=== PATIENT | female | born 1990 | race Caucasian/White ===

== ENCOUNTER 2021-04-06 05:45 | Emergency (ER) | payer OTHER ==
[~2021-04-06] VITALS: Ht 165.1 cm; Wt 59.0 kg
[~2021-04-06 05:45] MED LIST: DULERA 200 MCG/13 GM; LEVAQUIN750 MG PO; MEDROL4 MG; MEDROL4 MG PO; PROVENTIL3 ML/2.5 M; SINGULAIR10 MG; TUSSI PRES-B L120 M1 PO; TUSSIONEX PENNKI5 ML; TUSSIONEX PENNKI5 ML PO; ZITHROMAX TRI-500 MG PO
[2021-04-06] MEDS ORDERED: PROAIR HFA8.5 GM (06:04)
[2021-04-06] MEDS ORDERED: DOXYCYCLINE HY100 M2 (06:05)
== END 2021-04-06 10:07 | disposition home or self-care (01) ==
LOC: ER 05:45
DX: J45.901 Unspecified asthma with (acute) exacerbation (principal); J06.9 Acute upper respiratory infection, unspecified; Z20.822 Contact with and (suspected) exposure to COVID-19

== ENCOUNTER 2021-09-24 15:34 | Emergency (ER) | payer OTHER ==
[~2021-09-24] VITALS: Ht 165.1 cm; Wt 59.0 kg
[~2021-09-24 15:34] MED LIST changes: +DOXYCYCLINE HY100 M2; +PROAIR HFA8.5 GM
[2021-09-24] MEDS ORDERED: BREZTRI AEROS10.7 GM (16:54)
[2021-09-24] MEDS ORDERED: CODEINE-GUAIFE120 ML PO (19:48)
== END 2021-09-24 19:53 | disposition home or self-care (01) ==
LOC: ER 15:34
DX: J98.01 Acute bronchospasm (principal); Z20.822 Contact with and (suspected) exposure to COVID-19; Z88.8 Allergy status to other drugs, medicaments and biological substances

== ENCOUNTER 2024-02-12 02:40 | Emergency (ER) | payer OTHER ==
[~2024-02-12] VITALS: Ht 165.1 cm; Wt 62.6 kg
[~2024-02-12 02:40] MED LIST changes: +BREZTRI AEROS10.7 GM; +CODEINE-GUAIFE120 ML PO
[2024-02-12] MEDS ORDERED: JUNEL FE 1 MG-1 EACH PO (03:10)
[2024-02-12 03:11] VITALS: BP 113/71; O2SAT 98
[2024-02-12] MEDS ORDERED: HYDROCODONE/CHLORPHEN P-STIREX 5 ML ML PO STA (04:21)
[2024-02-12] MEDS ORDERED: METHYLPREDNISOLONE SOD SUCC 125 MG VIAL IV STA (04:21)
[2024-02-12] MEDS ORDERED: LEVALBUTEROL HCL 0.63 MG/3 ML SOLUTION IH SCH (04:30)
== END 2024-02-12 05:55 ==
LOC: ER 02:41
DX: J45.901 Unspecified asthma with (acute) exacerbation (principal); R06.02 Shortness of breath; Z87.09 Personal history of other diseases of the respiratory system; Z88.8 Allergy status to other drugs, medicaments and biological substances

== ENCOUNTER 2024-02-26 14:23 | Inpatient (IN) | payer OTHER ==
[~2024-02-26] VITALS: Ht 165.1 cm; Wt 62.1 kg
[~2024-02-26 14:23] MED LIST changes: +JUNEL FE 1 MG-1 EACH PO
--- NOTE | 2024-02-26 14:59 | NUR ---
PTE ALERTA Y ORIENTADA X3 REFIERE TOS Y QUE ANOCHE TUVO UN EPISODIO DE ATSMA. SE MIDEN S/V Y SE UBICA.
[2024-02-26] MEDS ORDERED: BUDESONIDE 0.25 MG/2 ML AMPUL.NEB IH STA (16:49)
[2024-02-26] MEDS ORDERED: ALBUTEROL SULFATE 3 ML/2.5 MG AMPUL.NEB IH STA (16:50)
[2024-02-26] MEDS ORDERED: GUAIFENESIN 200 MG/10 ML BLIST.PACK PO STA (16:50)
--- NOTE | 2024-02-26 18:22 | NUR ---
SE EDUCA ACERCA DE TX ORDENADO Y REFIERE ENTENDER; SE COLECTA MUESTRA DE LABORATORIO MEDIANTE MEDIDAS ASEPTICAS. SE ADMINISTRA MEDICAMENTO NETO ORDEN MEDICA. SE NOTIFICAN TERAPIAS RESPIRATORIAS.
[2024-02-26 18:23] LABS: HEMATOCRIT 39.1 % (36.0-45.00); MEAN CELL VOLUME 87.3 fL (80.00-100.00); MEAN CORPUSCULAR HGB CONC 33.2 g/dl (32.0-36.0); PLATELET COUNT 309 K/uL (150-450); RED BLOOD COUNT 4.48 M/uL (4.00-6.00); RED CELL DISTRIBUTION WIDTH 13.5 % (11.5-14.5)
[2024-02-26] MEDS ORDERED: 0.9 % SODIUM CHLORIDE 500 ML IV STA (19:38)
[2024-02-26] MEDS ORDERED: METHYLPREDNISOLONE SOD SUCC 40 MG VIAL IV STA (19:39)
[2024-02-26] MEDS ORDERED: CEFTRIAXONE SODIUM 1,000 MG VIAL IV STA (19:39)
[2024-02-26] MEDS ORDERED: CODEINE PHOSPHATE/GUAIFENESIN 5 ML ML PO STA (19:40)
[2024-02-26] MEDS ORDERED: ALBUTEROL SULFATE 3 ML/2.5 MG AMPUL.NEB IH SCH (22:30)
--- NOTE | 2024-02-26 23:20 | NUR ---
11:22PM SE NOTIFICA TERAPIAS A
[2024-02-27] MEDS ORDERED: HYDROCODONE/CHLORPHEN P-STIREX 5 ML ML PO STA (01:16)
[2024-02-27] MEDS ORDERED: ALBUTEROL SULFATE 3 ML/2.5 MG AMPUL.NEB IH SCH (02:00)
[2024-02-27] MEDS ORDERED: MAGNESIUM SULFATE IN WATER 4 GM/100 ML PIGGYBACK IV STA (05:16)
[2024-02-27] MEDS ORDERED: METHYLPREDNISOLONE SOD SUCC 125 MG VIAL IV SCH ×2 (06:00→09:00)
[2024-02-27 06:21] LABS: HEMATOCRIT 37.8 % (36.0-45.00); HEMOGLOBIN 12.3 g/dL (12.0-15.00); MEAN CELL VOLUME 87.6 fL (80.00-100.00); MEAN CORPUSCULAR HEMOGLOBIN 28.4 pg (27.00-32.0); MEAN CORPUSCULAR HGB CONC 32.4 g/dl (32.0-36.0); PLATELET COUNT 298 K/uL (150-450); RED BLOOD COUNT 4.31 M/uL (4.00-6.00); RED CELL DISTRIBUTION WIDTH 13.9 % (11.5-14.5)
[2024-02-27 06:41] LABS: URINE APPEARANCE Clear; URINE BILIRRUBIN Negative (NEGATIVE); URINE BLOOD Negative; URINE COLOR Yellow; URINE GLUCOSE Negative (NEGATIVE); URINE KETONE Negative (NEGATIVE); URINE LEUKOCYTE Negative; URINE NITRATE Negative; URINE PROTEIN Negative (NEGATIVE); URINE UROBILINOGEN 0.2 E.U./dl
[2024-02-27 06:43] LABS: URINE BACTERIA 21.4 uL (0.0-1933); URINE EPITHELIAL CELLS 12.9 uL (0.0-38.8)
[2024-02-27 06:47] LABS: ABG PH 7.361 (7.35-7.45); ABG PO2 114.3 mmHg (80-100); ABG pCO2 33.6 mmHg (35-45); BASE EXCESS -5.8 mmol/l; BICARBONATE 18.6 mmol/l (23-25); SaO2 98.1 %; Tco2 19.6 mmol/l; allen test SATISFACTORY; o2 21 %; puncture site RADIAL LEFT
[2024-02-27 06:59] LABS: ALBUMIN 3.5 gm/dL (3.4-5.0); BILIRUBIN TOTAL 0.19 mg/dL (0.3-1.2); CREATININE SERUM 0.91 mg/dL (0.55-1.02); GFR 71.19; GLOBULINA 3.6 G/DL (2.4-3.5); POTASSIUM 3.63 mEq/L (3.5-5.1); TOTAL PROTEIN 7.1 gm/dL (6.4-8.2)
[2024-02-27 07:11] LABS: URINE CAST 0.45 uL (0.0-1.40); URINE RBC 1.3 uL (0.0-20.8)
--- NOTE | 2024-02-27 07:18 | NUR ---
SE RECIBE PTE ALERTA Y ORIENTADA X3 LA MISMA EN UMER BAJA POR SEGURIDAD. SE OBSERVA CANALIZACION EN BRAZO ROSALBA #20 POR DONDE BAJA IVFLUIDS .9 NSS @125ML/HR. SE REALIZAN VITALES Y SE RANJEET PTE EN ESPERA DE CONSULTA CON DR SUTTON. PACIENTE CON TERAPIAS CADA 2 HORAS, SE COLOCA CANULA NASAL A 3 LITROS.
[2024-02-27 07:41] VITALS: BP 116/80
[2024-02-27] MEDS ORDERED: AZITHROMYCIN 500 MG in 0.9 % SODIUM CHLORIDE 250 ML IV SCH (09:00)
[2024-02-27] MEDS ORDERED: CEFTRIAXONE SODIUM 2,000 MG in 0.9 % SODIUM CHLORIDE 100 ML IV SCH (09:00)
[2024-02-27] MEDS ORDERED: IPRATROPIUM/ALBUTEROL SULFATE 3 ML AMPUL.NEB IH SCH (09:00)
[2024-02-27 09:56] VITALS: BP 114/72; O2SAT 97
[2024-02-27] MEDS ORDERED: GUAIFENESIN 100 MG/5 ML BLIST.PACK PO SCH (12:00)
[2024-02-27 16:02] VITALS: BP 104/70; O2SAT 100
[2024-02-27] MEDS ORDERED: CODEINE/PROMETHAZINE HCL 1 ML ML PO SCH (17:51)
[2024-02-27] MEDS ORDERED: PANTOPRAZOLE SODIUM 40 MG TABLET.DR PO SCH (17:52)
[2024-02-27] MEDS ORDERED: METHYLPREDNISOLONE SOD SUCC 40 MG VIAL IV NR (18:00)
[2024-02-27] MEDS ORDERED: GUAIFENESIN 200 MG/10 ML BLIST.PACK PO SCH (18:00)
[2024-02-27 19:10] LABS: MYCOPLASMA PNEUMONIAE IGM REACTIVE (NO REACTIVE)
[2024-02-28 00:07] VITALS: BP 102/58; O2SAT 99
[2024-02-28] MEDS ORDERED: METHYLPREDNISOLONE SOD SUCC 40 MG VIAL IV SCH ×2 (01:00→17:00)
[2024-02-28 08:24] VITALS: BP 125/64; O2SAT 100
[2024-02-28] MEDS ORDERED: CODEINE PHOSPHATE/GUAIFENESIN 5 ML ML PO SCH (09:31)
[2024-02-28] MEDS ORDERED: DEXTROSE 5 % IN WATER 1,000 ML IV SCH (12:30)
[2024-02-28 16:06] VITALS: BP 128/74; O2SAT 98
[2024-02-29] VITALS: BP 119/82; O2SAT 100
[2024-02-29 08:33] VITALS: BP 118/73; O2SAT 99
[2024-02-29 16:06] VITALS: BP 118/68; O2SAT 20
[2024-03-01 00:05] VITALS: BP 112/79; O2SAT 96
[2024-03-01 08:00] VITALS: BP 135/85; O2SAT 98
== END 2024-03-01 12:38 | disposition home or self-care (01) | DRG 203 ==
LOC: ER 14:25 → SEC-K 02-27 08:02 → SURG 02-27 08:02
PROVIDERS: Emergency Medicine; General Practice; Internal Medicine; ADMIT Internal Medicine; ATTEND Internal Medicine
PROC: BB24ZZZ Computerized Tomography (CT Scan) of Bilateral Lungs (ICD-10-PCS; 2024-02-27)
PROC: 3E0F7GC Introduction of Other Therapeutic Substance into Respiratory Tract, Via Natural or Artificial Opening (ICD-10-PCS; 2024-02-27)
PROC: 8E0ZXY6 Isolation (ICD-10-PCS; principal; 2024-02-28)
DX: J45.901 Unspecified asthma with (acute) exacerbation (principal); B96.0 Mycoplasma pneumoniae [M. pneumoniae] as the cause of diseases classified elsewhere